=== PATIENT | male | born 1975 | race Two or more races ===

== ENCOUNTER 2018-03-01 09:06 | Emergency (ER) | payer OTHER ==
--- NOTE | 2018-03-01 09:26 | ER Document Report ---
HPI - HPI Pain Level: 0 Past Medical History - Social History Family History: Reviewed & Not Pertinent Renal/ Medical History: Reports: Hx Kidney Stones Vertical Provider Document - INFECTION CONTROL TRAVEL OUTSIDE OF THE [place] IN LAST 30 DAYS: No Course - Vital Signs Vital signs: Temp Pulse Resp BP Pulse Ox 98.8 F 71 18 141/101 H 100 03/01/18 09:11 03/01/18 09:11 03/01/18 09:11 03/01/18 09:11 03/01/18 09:11
[2018-03-01] MEDS ORDERED: HYDROCODONE/ACETAMINOPHEN 5-325 MG TABLET PO ONE (09:53)
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
--- NOTE | 2018-03-01 10:46 | EKG REPORT ---
SEVERITY:- ABNORMAL ECG - SINUS RHYTHM LEFT VENTRICULAR HYPERTROPHY : Confirmed by: Sabrina Riojas 01-Mar-2018 10:45:56
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
[2018-03-01 12:03] VITALS: BP 131/85
== END 2018-03-01 12:04 | disposition home or self-care (01) ==
LOC: ER 09:06
DX: S16.1XXA Strain of muscle, fascia and tendon at neck level, initial encounter (principal); S20.211A Contusion of right front wall of thorax, initial encounter; S30.1XXA Contusion of abdominal wall, initial encounter; V43.52XA Car driver injured in collision with other type car in traffic accident, initial encounter
CPT/HCPCS: 71046; 72050; 93005; 93010; 99285